=== PATIENT | male | born 1940 | race Caucasian/White ===

== ENCOUNTER 2021-08-18 07:57 | Emergency (ER) | payer OTHER ==
[~2021-08-18] VITALS: Ht 182.9 cm; Wt 85.3 kg
[2021-08-18 09:17] LABS: INR 1.09 (0.9-1.2); PROTHROMBIN TIME 13.5 SECONDS (11.8-13.4); PTT 37.5 SECONDS (24.4-34.7)
[2021-08-18 09:18] LABS: D-DIMER 1.13 ug/mLFEU (0.00-0.41)
[2021-08-18 09:45] LABS: ALBUMIN 3.1 g/dL (3.4-5.0); BILIRUBIN - DIRECT 0.1 mg/dL (0.00-0.20); BILIRUBIN - TOTAL 0.7 mg/dL (0.2-1.0); C-REACTIVE PROTEIN 17.2 mg/dL (<=0.90); CREATININE 0.94 mg/dL (0.67-1.17); GLOBULIN (CALCULATION) 3.7 g/dL; POTASSIUM 3.2 mmol/L (3.5-5.1); TOTAL PROTEIN 6.8 g/dL (6.4-8.2)
[2021-08-18] MEDS ORDERED: MEDROL 4MG DOSEP4 MG PO (14:24)
[2021-08-18] MEDS ORDERED: VENTOLIN HFA18 GM INH (14:24)
[2021-08-18] MEDS ORDERED: TESSALON PERLE100 M1 PO (14:24)
[2021-08-18] MEDS ORDERED: ZPAK PO (14:24)
[2021-08-18] MEDS ORDERED: ONDANSETRON ODT4 MG PO (14:24)
== END 2021-08-18 15:13 | disposition home or self-care (01) ==
LOC: FER 07:57
PROVIDERS: Emergency Medicine
DX: U07.1 COVID-19 (principal)
CPT/HCPCS: 36415; 71275; 80048; 80076; 82728; 83605; 83615; 84145; 85379; 85610; 85730; 86140; 93005; J1100; Q9967; U0002